=== PATIENT | female | born 1965 | race Caucasian/White ===

== ENCOUNTER 2018-06-06 19:15 | Emergency (ER) | payer BC, OTHER ==
[~2018-06-06] VITALS: Ht 162.6 cm; Wt 100.8 kg
[2018-06-06] MEDS ORDERED: SODIUM CHLORIDE FLUSH 10ML SYR IVF ONE (20:00)
[2018-06-06 20:21] LABS: BASOPHILS # (AUTO) 0.13 x10^3/uL (0-0.1); BASOPHILS % (AUTO) 1 % (0-1); EOSINOPHILS # (AUTO) 0.14 x10^3/uL (0-0.4); EOSINOPHILS % (AUTO) 1 % (1-7); LYMPHOCYTES # (AUTO) 1.92 x10^3/uL (1-3.4); LYMPHOCYTES % (AUTO) 18 % (22-44); MD NO; MEAN CORPUSCULAR HEMOGLOBIN 28.4 pg (27.0-34.8); MEAN CORPUSCULAR HGB CONC 33.3 g/dL (32.4-35.8); MEAN CORPUSCULAR VOLUME 85.3 fL (80-100); MEAN PLATELET VOLUME 8.1 fL (7.4-10.4); MONOCYTES # (AUTO) 0.61 x10^3/uL (0.2-0.8); MONOCYTES % (AUTO) 6 % (2-9); NEUTROPHILS # (AUTO) 8.03 x10^3/uL (1.8-6.8); NEUTROPHILS % (AUTO) 74 % (42-75); PLATELET COUNT 337 x10^3/uL (130-400); RED BLOOD COUNT 4.48 x10^6/uL (3.82-5.3); RED CELL DISTRIBUTION WIDTH 14.6 % (9.6-15.2)
[2018-06-06 20:24] LABS: CULTURE INDICATED? YES; MICROSCOPIC INDICATED
[2018-06-06 20:33] LABS: ALANINE AMINOTRANSFERASE 23 U/L (12-78); ALBUMIN 3.4 g/dL (3.4-5.0); ANION GAP 8 mmol/L (5-15); CALCIUM 9.1 mg/dL (8.5-10.1); CHLORIDE 110 mmol/L (98-107); CREATININE 0.79 mg/dL (0.55-1.02)
[2018-06-06 20:37] LABS: ALKALINE PHOSPHATASE 84 U/L (45-117); BILIRUBIN,TOTAL 0.6 mg/dL (0.2-1.0); FREE T4 (FREE THYROXINE) 1.07 ng/dL (0.76-1.46); TOTAL PROTEIN 7.4 g/dL (6.4-8.2); TROPONIN I < 0.015 ng/mL (0.000-0.045)
[2018-06-06 21:52] VITALS: BP 107/77
[2018-06-06] MEDS ORDERED: OMNIPAQUE 350 MG/ML, 100ML BOTTLE ONE (23:39)
== END 2018-06-06 21:54 | disposition home or self-care (01) ==
LOC: ED 20:25
DX: K57.32 Diverticulitis of large intestine without perforation or abscess without bleeding (principal); N30.01 Acute cystitis with hematuria; I10 Essential (primary) hypertension; E03.9 Hypothyroidism, unspecified; Z88.1 Allergy status to other antibiotic agents; Z79.899 Other long term (current) drug therapy
CPT/HCPCS: 36415; 74177; 80053; 81001; 83690; 84439; 84443; 84484; 84703; 85025; 87086; 93005; 99285; Q9967

== ENCOUNTER 2018-06-23 13:01 | Day surgery (SDC) | payer OTHER, BC ==
[~2018-06-23] VITALS: Ht 162.6 cm; Wt 96.1 kg
[~2018-06-23 13:01] MED LIST: LEVO50TA5 PO; LISI-167 PO; MEDR10TA3 PO; PARO20TA4 PO
[2018-06-23] MEDS ORDERED: LACTATED RINGERS 1,000 ML IV SCH (13:20)
[2018-06-23 13:27] VITALS: BP 111/78
[2018-06-23 13:50] LABS: HCG UR SG 1.014 (1.003-1.030)
[2018-06-23] MEDS ORDERED: SILVER NITRATE STICK TP ONE (14:08)
[2018-06-23] MEDS ORDERED: MIDAZOLAM 1 MG/ML, 2ML ONE (15:10)
[2018-06-23] MEDS ORDERED: FENTANYL PF 250 MCG/5ML ONE (15:10)
[2018-06-23] MEDS ORDERED: PROPOFOL 10 MG/ML, 20ML ONE (15:10)
[2018-06-23] MEDS ORDERED: KETOROLAC 30 MG/1 ML ONE (15:11)
[2018-06-23] MEDS ORDERED: DEXAMETHASONE 4 MG/ML, 1ML ONE ×2 (15:11)
[2018-06-23] MEDS ORDERED: ONDANSETRON 2MG/ML, 2ML ONE (15:11)
[2018-06-23] MEDS ORDERED: WATER-INJECTION,STERILE 10 ML IV ONE (15:14)
[2018-06-23] MEDS ORDERED: CEFAZOLIN 1,000 MG ONE ×2 (15:14)
[2018-06-23] MEDS ORDERED: ONDANSETRON ODT 8 MG PO PRN (15:30)
[2018-06-23] MEDS ORDERED: FENTANYL PF 100 MCG/2ML IV PRN (15:30)
[2018-06-23] MEDS ORDERED: MEPERIDINE/PF 25MG/0.5ML IVPush PRN (15:30)
[2018-06-23] MEDS ORDERED: hydrALAzine 20 MG/ML, 1ML IV PRN (15:30)
[2018-06-23] MEDS ORDERED: ONDANSETRON 2MG/ML, 2ML IV PRN (15:30)
[2018-06-23] MEDS ORDERED: OXYcodone 5 MG/5 ML ORAL.SOL UDC PO PRN (15:30)
[2018-06-23] MEDS ORDERED: HYDROmorphone 1 MG/ML, 1ML IV PRN (15:30)
[2018-06-23] MEDS ORDERED: ACETAMINOPHEN 325 MG TABLET PO PRN (15:30)
[2018-06-23] MEDS ORDERED: LABETALOL 5MG/ML, 20ML IV PRN (15:30)
[2018-06-23] MEDS ORDERED: MORPHINE SULFATE 4 MG/ML, 1ML IVPush PRN (15:30)
[2018-06-23] MEDS ORDERED: PROMETHAZINE 25 MG SUPP PR PRN (15:30)
[2018-06-23] MEDS ORDERED: PROMETHAZINE 25 MG/ML, 1ML IV PRN (15:30)
[2018-06-23] MEDS ORDERED: PROMETHAZINE 12.5 MG SUPP PR PRN (15:30)
== END 2018-06-23 18:40 | disposition home or self-care (01) ==
LOC: OUT 13:01
PROVIDERS: ATTEND Student in an Organized Health Care Education/Training Program
DX: N93.9 Abnormal uterine and vaginal bleeding, unspecified (principal); D64.9 Anemia, unspecified; I10 Essential (primary) hypertension; G43.909 Migraine, unspecified, not intractable, without status migrainosus; E03.9 Hypothyroidism, unspecified; F32.9 Major depressive disorder, single episode, unspecified; Z98.890 Other specified postprocedural states; Z88.1 Allergy status to other antibiotic agents; Z88.8 Allergy status to other drugs, medicaments and biological substances
CPT/HCPCS: 36415; 58301; 58563; 81025; 86850; 86900; J1100; J1885; J2250; J2405; J2704; J3010; J7120; J0690

== ENCOUNTER → 2018-09-01 | Outpatient (CLI) | payer OTHER, BC | END | disposition home or self-care (01) | LOC: RAD 10:01 | PROVIDERS: ATTEND Internal Medicine | DX: E04.1 Nontoxic single thyroid nodule (principal) | CPT/HCPCS: 76942; 88173 ==

== ENCOUNTER → 2018-09-28 | Outpatient (CLI) | payer OTHER, BC ==
[~2018-09-28] MED LIST changes: +ACET325T14 PO; +IBUP200T64 PO
[2018-09-28 08:50] LABS: BASOPHILS # (AUTO) 0.05 x10^3/uL (0-0.1); BASOPHILS % (AUTO) 1 % (0-1); EOSINOPHILS # (AUTO) 0.13 x10^3/uL (0-0.4); EOSINOPHILS % (AUTO) 2 % (1-7); LYMPHOCYTES # (AUTO) 1.78 x10^3/uL (1-3.4); LYMPHOCYTES % (AUTO) 26 % (22-44); MD NO; MEAN CORPUSCULAR HEMOGLOBIN 28.9 pg (27.0-34.8); MEAN CORPUSCULAR HGB CONC 33.4 g/dL (32.4-35.8); MEAN CORPUSCULAR VOLUME 86.5 fL (80-100); MEAN PLATELET VOLUME 7.4 fL (7.4-10.4); MONOCYTES # (AUTO) 0.39 x10^3/uL (0.2-0.8); MONOCYTES % (AUTO) 6 % (2-9); NEUTROPHILS # (AUTO) 4.46 x10^3/uL (1.8-6.8); NEUTROPHILS % (AUTO) 66 % (42-75); PLATELET COUNT 348 x10^3/uL (130-400); RED BLOOD COUNT 4.72 x10^6/uL (3.82-5.3); RED CELL DISTRIBUTION WIDTH 14.1 % (9.6-15.2)
[2018-09-28 08:50] LABS: MICROSCOPIC NOT IND
[2018-09-28 08:52] LABS: CULTURE INDICATED? NO
[2018-09-28 08:56] LABS: INTERNATIONAL NORMALIZED RATIO 0.97 (0.93-1.1)
[2018-09-28 08:58] LABS: ANION GAP 8 mmol/L (5-15); CALCIUM 8.7 mg/dL (8.5-10.1); CHLORIDE 109 mmol/L (98-107); CREATININE 0.75 mg/dL (0.55-1.02)
[2018-09-28 08:59] LABS: ALANINE AMINOTRANSFERASE 28 U/L (12-78); ALBUMIN 3.8 g/dL (3.4-5.0)
[2018-09-28 09:01] LABS: ALKALINE PHOSPHATASE 92 U/L (45-117); BILIRUBIN,TOTAL 0.3 mg/dL (0.2-1.0); TOTAL PROTEIN 7.4 g/dL (6.4-8.2)
== END | disposition home or self-care (01) ==
LOC: STAR 07:45
PROVIDERS: ATTEND Neurological Surgery
DX: Z01.818 Encounter for other preprocedural examination (principal); M48.02 Spinal stenosis, cervical region; M54.12 Radiculopathy, cervical region; M50.30 Other cervical disc degeneration, unspecified cervical region; I10 Essential (primary) hypertension
CPT/HCPCS: 36415; 71046; 80053; 81003; 85025; 85610; 85730; 93005

== ENCOUNTER 2018-10-07 05:20 | Inpatient (IN) | payer OTHER, BC ==
[2018-09-28 08:14] VITALS: BP 113/82
[~2018-10-07] VITALS: Ht 162.6 cm; Wt 106.5 kg
[2018-10-07] MEDS ORDERED: LACTATED RINGERS 1,000 ML IV SCH (06:07)
[2018-10-07] MEDS ORDERED: SUGAMMADEX 200 MG/2 ML IVPush ONE (06:28)
[2018-10-07] MEDS ORDERED: MIDAZOLAM 1 MG/ML, 2ML ONE (06:30)
[2018-10-07] MEDS ORDERED: GABAPENTIN 300 MG CAPSULE PO ONE (06:30)
[2018-10-07] MEDS ORDERED: ACETAMINOPHEN 500 MG TABLET PO ONE (06:30)
[2018-10-07] MEDS ORDERED: FENTANYL PF 250 MCG/5ML ONE (06:30)
[2018-10-07] MEDS ORDERED: ONDANSETRON ODT 8 MG PO ONE (06:30)
[2018-10-07] MEDS ORDERED: SUCCINYLCHOLINE 20 MG/ML, 10ML ONE (06:31)
[2018-10-07] MEDS ORDERED: LIDOCAINE-MPF 2% ,5ML ONE (06:31)
[2018-10-07] MEDS ORDERED: CEFAZOLIN 1,000 MG ONE ×2 (06:31)
[2018-10-07] MEDS ORDERED: DEXAMETHASONE 4 MG/ML, 1ML ONE ×3 (06:31→12:03)
[2018-10-07] MEDS ORDERED: PROPOFOL 10 MG/ML, 20ML ONE (06:31)
[2018-10-07] MEDS ORDERED: ROCURONIUM 10MG/ML,5ML ONE (06:31)
[2018-10-07] MEDS ORDERED: BUPIVACAINE/PF 0.5% ONE (06:39)
[2018-10-07] MEDS ORDERED: BACITRACIN 50,000 UNIT ONE (06:40)
[2018-10-07] MEDS ORDERED: PROPOFOL 50 ML ONE ×2 (06:40→07:57)
[2018-10-07] MEDS ORDERED: THROMBIN 5,000 UNIT VIAL TP ONE (06:40)
[2018-10-07] MEDS ORDERED: EPINEPHRINE 1 MG/ML, 1ML ONE (06:40)
[2018-10-07] MEDS ORDERED: PHENYLEPHRINE 10 MG/ML ONE (06:57)
[2018-10-07] MEDS ORDERED: ROCURONIUM 10 MG/ML,10ML ONE (06:57)
[2018-10-07] MEDS ORDERED: CLINDAMYCIN 150 MG/ML, 6ML ONE (07:08)
[2018-10-07] MEDS ORDERED: OXYcodone 5 MG/5 ML ORAL.SOL UDC PO PRN (08:00)
[2018-10-07] MEDS ORDERED: LABETALOL 5MG/ML, 20ML IV PRN (08:00)
[2018-10-07] MEDS ORDERED: LORazepam 2 MG/ML, 1ML IVPush PRN (08:00)
[2018-10-07] MEDS ORDERED: ALBUTEROL/IPRATROPIUM 2.5MG/0.5MG, 3 ML NPPB PRN (08:00)
[2018-10-07] MEDS ORDERED: MEPERIDINE/PF 25MG/0.5ML IVPush PRN (08:00)
[2018-10-07] MEDS ORDERED: hydrALAzine 20 MG/ML, 1ML IV PRN (08:00)
[2018-10-07] MEDS ORDERED: HYDROmorphone 1 MG/ML, 1ML IV PRN (08:00)
[2018-10-07] MEDS ORDERED: SCOPOLAMINE PATCH, 1.5MG PATCH.TD72 TD PRN (08:00)
[2018-10-07] MEDS ORDERED: FENTANYL PF 100 MCG/2ML ONE (08:54)
[2018-10-07] MEDS ORDERED: OXYcodone 5 MG/5 ML ORAL.SOL UDC ONE (08:54)
[2018-10-07] MEDS ORDERED: PROMETHAZINE 25 MG/ML, 1ML IM PRN (09:00)
[2018-10-07] MEDS ORDERED: DIPHENHYDRAMINE 50 MG/ML, 1ML IVPush PRN (09:00)
[2018-10-07] MEDS ORDERED: BISACODYL 10 MG SUPP PR PRN (09:00)
[2018-10-07] MEDS ORDERED: DEXAMETHASONE 4 MG/ML, 1ML IVPush SCH (09:00)
[2018-10-07] MEDS ORDERED: PHARMACY MAY ADJ FOR RENAL FX MC PRN (09:00)
[2018-10-07] MEDS ORDERED: HYDROcodone/APAP 10/325 MG TABLET PO PRN (09:00)
[2018-10-07] MEDS: LISINOPRIL 10 MG TABLET PO SCH (09:00)
[2018-10-07] MEDS ORDERED: ONDANSETRON 2MG/ML, 2ML IVPush PRN (09:00)
[2018-10-07] MEDS ORDERED: SENNA/DOCUSATE TABLET PO PRN (09:00)
[2018-10-07] MEDS ORDERED: morphine SULFATE 10 MG/ML, 1ML IVPush PRN (09:00)
[2018-10-07] MEDS ORDERED: HYDROcodone/APAP 5/325 TABLET PO PRN (09:00)
[2018-10-07] MEDS ORDERED: PAROXETINE 10 MG TABLET PO SCH ×2 (09:00→21:00)
[2018-10-07] MEDS: LEVOTHYROXINE 50 MCG TABLET PO SCH (09:00)
[2018-10-07] MEDS: SODIUM CHLORIDE FLUSH 10ML SYR IVF SCH ×2 (09:00→21:00)
[2018-10-07] MEDS: FENTANYL PF 100 MCG/2ML IV PRN ×2 (09:03→09:20)
[2018-10-07] MEDS ORDERED: MEPERIDINE/PF 50 MG/ML ONE (09:50)
[2018-10-07] MEDS ORDERED: DIAZEPAM 5 MG/ML, 2ML IVPush PRN (10:00)
[2018-10-07] MEDS: NS + 20MEQ KCL 1,000 ML IV SCH ×2 (12:08→21:29)
[2018-10-07] MEDS: DEXAMETHASONE 4 MG/ML, 1ML IVPush SCH ×2 (12:09→17:44)
[2018-10-07] MEDS: METHOCARBAMOL 750 MG TABLET PO PRN ×2 (12:24→21:23)
[2018-10-07] MEDS: OXYcodone/APAP 5/325MG TABLET PO PRN ×2 (15:23→21:12)
[2018-10-07 15:45] VITALS: BP 114/78
[2018-10-07 19:03] VITALS: BP 111/67
[2018-10-08 00:09] VITALS: BP 120/80
[2018-10-08] MEDS: DEXAMETHASONE 4 MG/ML, 1ML IVPush SCH ×2 (00:51→06:12)
[2018-10-08 03:22] VITALS: BP 128/84
[2018-10-08] MEDS: OXYcodone/APAP 5/325MG TABLET PO PRN ×3 (03:34→12:12)
[2018-10-08] MEDS: NS + 20MEQ KCL 1,000 ML IV SCH (08:00)
[2018-10-08 08:08] VITALS: BP 100/66
[2018-10-08] MEDS ORDERED: LEVOTHYROXINE 25 MCG TABLET ONE (08:25)
[2018-10-08] MEDS: SODIUM CHLORIDE FLUSH 10ML SYR IVF SCH (08:28)
[2018-10-08] MEDS: LEVOTHYROXINE 50 MCG TABLET PO SCH (08:29)
[2018-10-08] MEDS: LISINOPRIL 10 MG TABLET PO SCH (08:35)
[2018-10-08] MEDS ORDERED: OXYC-302 PO (09:42)
[2018-10-08] MEDS ORDERED: METH750T87 PO (09:43)
[2018-10-08] MEDS ORDERED: MEDROL DOSE PACK PO (09:44)
[2018-10-08] MEDS: METHOCARBAMOL 750 MG TABLET PO PRN (10:22)
[2018-10-08 12:09] VITALS: BP 123/68
== END 2018-10-08 12:55 | disposition home or self-care (01) | DRG 473 ==
LOC: ORIP 05:20 → 4NOR 10:56 → DCLOUNGE 10-08 12:43
PROVIDERS: ADMIT Neurological Surgery; ATTEND Neurological Surgery
PROC: 0RB30ZZ Excision of Cervical Vertebral Disc, Open Approach (ICD-10-PCS; 2018-10-07)
PROC: 4A11X4G Monitoring of Peripheral Nervous Electrical Activity, Intraoperative, External Approach (ICD-10-PCS; 2018-10-07)
PROC: 0RG20A0 Fusion of 2 or more Cervical Vertebral Joints with Interbody Fusion Device, Anterior Approach, Anterior Column, Open Approach (ICD-10-PCS; principal; 2018-10-07 07:00)
DX: M48.02 Spinal stenosis, cervical region (principal); F41.9 Anxiety disorder, unspecified; G43.909 Migraine, unspecified, not intractable, without status migrainosus; M50.122 Cervical disc disorder at C5-C6 level with radiculopathy; M50.123 Cervical disc disorder at C6-C7 level with radiculopathy; I10 Essential (primary) hypertension; E03.9 Hypothyroidism, unspecified; Z98.51 Tubal ligation status; Z88.8 Allergy status to other drugs, medicaments and biological substances
CPT/HCPCS: 72040; S0077; C1713; G0378; J0171; J0690; J1100; J2175; J2250; J2704; J3010; J3360; J3480; J3490; Q0162; C1762; J0330; J2370; J7120

== ENCOUNTER 2019-05-18 14:25 | Outpatient (CLI) | payer BC ==
[~2019-05-18 14:25] MED LIST changes: +MEDROL DOSE PACK PO; +METH750T87 PO; +OXYC-302 PO
== END 2019-05-18 23:59 | disposition home or self-care (01) ==
LOC: CFH 14:25
PROVIDERS: ATTEND Internal Medicine
DX: M85.2 Hyperostosis of skull (principal)
CPT/HCPCS: 70450

== ENCOUNTER 2021-01-25 15:50 | Outpatient (CLI) | payer OTHER ==
[~2021-01-25 15:50] MED LIST changes: -OXYC-302 PO; +OXYC1TAB14 PO
== END 2021-01-25 23:59 | disposition home or self-care (01) ==
LOC: CFH 15:50
PROVIDERS: ATTEND Internal Medicine
DX: I10 Essential (primary) hypertension (principal); E78.2 Mixed hyperlipidemia
CPT/HCPCS: 75571

== ENCOUNTER → 2021-07-17 | Outpatient (CLI) | payer OTHER ==
[2021-07-17 11:59] LABS: BASOPHILS % (AUTO) 1 % (0-1); EOSINOPHILS % (AUTO) 4 % (1-7); LYMPHOCYTES % (AUTO) 27 % (22-44); MEAN CORPUSCULAR HEMOGLOBIN 27.8 pg (27.0-34.8); MEAN CORPUSCULAR HGB CONC 32.7 g/dL (32.4-35.8); MEAN PLATELET VOLUME 7.6 fL (7.4-10.4); MONOCYTES % (AUTO) 7 % (2-9); NEUTROPHILS % (AUTO) 62 % (42-75); PLATELET COUNT 304 x10^3/uL (130-400); RED BLOOD COUNT 4.75 x10^6/uL (3.82-5.3); RED CELL DISTRIBUTION WIDTH 14.5 % (9.6-15.2)
[2021-07-17 12:08] LABS: ALBUMIN 3.7 g/dL (3.4-5.0); CALCIUM 8.8 mg/dL (8.5-10.1)
[2021-07-17 12:17] LABS: ALANINE AMINOTRANSFERASE 23 U/L (12-78); ALKALINE PHOSPHATASE 102 U/L (45-117); BILIRUBIN,TOTAL 0.5 mg/dL (0.2-1.0); CHOL/HDL RATIO 5.1; CHOLESTEROL, TOTAL 200 mg/dL (140-239); CREATININE 0.61 mg/dL (0.55-1.02); FREE T4 (FREE THYROXINE) 1.05 ng/dL (0.76-1.46); HDL CHOL % 20 % (28-40); HDL CHOLESTEROL (DIRECT) 39 mg/dL (40-60); LDL CHOLESTEROL,CALCULATED 134 mg/dL (54-169); LDL/HDL RATIO 3.4 (0.5-3.0); TOTAL PROTEIN 7.1 g/dL (6.4-8.2); TRIGLYCERIDES 136 mg/dL (50-200); VLDL CHOLESTEROL 27 mg/dL (0-25)
[2021-07-17 12:21] LABS: ANION GAP 8 mmol/L (5-15); CHLORIDE 108 mmol/L (98-107)
== END | disposition home or self-care (01) ==
LOC: LAB 11:07
PROVIDERS: ATTEND Internal Medicine
DX: E78.2 Mixed hyperlipidemia (principal); E03.9 Hypothyroidism, unspecified; R73.03 Prediabetes; R74.8 Abnormal levels of other serum enzymes; I10 Essential (primary) hypertension
CPT/HCPCS: 36415; 80053; 80061; 83036; 84439; 84443; 85025